=== PATIENT | female | born 2000 | race Caucasian/White ===

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

== ENCOUNTER 2022-04-02 01:59 | Emergency (ER) | payer BC, OTHER ==
[~2022-04-02] VITALS: Ht 154.9 cm; Wt 90.7 kg
[2022-04-02] MEDS ORDERED: ONDANSETRON 4 MG (ZOFRAN) ORAL DISSOLVE TAB PO STA (02:14)
--- NOTE | 2022-04-02 02:44 | ED General ---
General Chief Complaint: Dizziness/Syncope Stated Complaint: IN-OUT OF CONSCIOUSNESS,COMPLAINED OF CHEST TIGHTN Source of Information: Patient Exam Limitations: No Limitations History of Present Illness Date Seen by Provider: Apr 02, 2022 Time Seen by Provider: 02:05 Initial Comments Patient is a 21yo female who presents to the ER with a compliant of feeling dizzy. SHe states that she was at work at a local [employer]. She was heading to clean the bathrooms and had sudden onset of feeling dizzy, nauseated. She denies headache, vision change, unilateral numbness, weakness or tingling. She states her chest felt "tight" for about 20min. Gone now. She denies shortness of breath. No abdominal pain. Currently on her menstrual period. No diarrhea. States she was "sick" a week ago on with similar symptoms. She has had vertigo in high school but this feels different she states. When she moves around the "dizziness" is more pronounced. History of asthma. Allergies and Home Medications Allergies Uncoded Allergies: strawberries (Allergy, Mild, 04/02/22) Review of Systems Review of Systems Constitutional: see HPI, malaise EENTM: no symptoms reported Respiratory: no symptoms reported Cardiovascular: chest pain Gastrointestinal: nausea Genitourinary: no symptoms reported Musculoskeletal: no symptoms reported Skin: no symptoms reported Psychiatric/Neurological: Other (dizziness) All Other Systems Reviewed Negative Unless Noted: Yes Physical Exam Vital Signs Vital Signs - First Documented 04/02/22 02:05 Temp 36.9 Pulse 84 Resp 16 B/P (MAP) 141/86 (104) Pulse Ox 99 O2 Delivery Room Air Capillary Refill : Height, Weight, BMI Height: '" Weight: lbs. oz. kg; BMI Method: General Appearance: No Apparent Distress, WD/WN Eyes: Bilateral Eye Normal Inspection, Bilateral Eye PERRL, Bilateral Eye EOMI HEENT: PERRL/EOMI, Pharynx Normal, Moist Mucous Membranes Neck: Full Range of Motion, Normal Inspection Respiratory: Lungs Clear, Normal Breath Sounds, No Accessory Muscle Use, No Respiratory Distress Cardiovascular: Regular Rate, Rhythm, Normal Peripheral Pulses Gastrointestinal: Non Tender, Soft Extremity: Normal Capillary Refill, Normal Inspection, Normal Range of Motion Neurologic/Psychiatric: Alert, Oriented x3, No Motor/Sensory Deficits, Normal Mood/Affect, head baker II-XII Norm as Tested Skin: Normal Color, Warm/Dry Progress/Results/Core Measures Suspected Sepsis SIRS Temperature: Pulse: Respiratory Rate: Blood Pressure / Mean: Results/Orders Lab Results Laboratory Tests Test 04/02/22 02:18 04/02/22 02:24 Range/Units Glucometer 151 H 70-110 MG/DL Urine Opiates Screen NEGATIVE NEGATIVE Urine Oxycodone Screen NEGATIVE NEGATIVE Urine Methadone Screen NEGATIVE NEGATIVE Urine Propoxyphene Screen NEGATIVE NEGATIVE Urine Barbiturates Screen NEGATIVE NEGATIVE Ur Tricyclic Antidepressants Screen NEGATIVE NEGATIVE Urine Phencyclidine Screen NEGATIVE NEGATIVE Urine Amphetamines Screen NEGATIVE NEGATIVE Urine Methamphetamines Screen NEGATIVE NEGATIVE Urine Benzodiazepines Screen NEGATIVE NEGATIVE Urine Cocaine Screen NEGATIVE NEGATIVE Urine Cannabinoids Screen NEGATIVE NEGATIVE My Orders Orders - CAMILLA JACKSON MD Drug Screen Stat (Urine) (04/02/22 02:14) Urine Bedside (04/02/22 02:14) Accucheck Stat ONCE (04/02/22 02:14) Ondansetron Oral Dissolve Tab (Zofran (04/02/22 02:14) Vital Signs/I&O 04/02/22 02:05 Temp 36.9 Pulse 84 Resp 16 B/P (MAP) 141/86 (104) Pulse Ox 99 O2 Delivery Room Air Capillary Refill : Progress Note : Time: 02:58 Progress Note Patient seen and evaluated, 21-year-old with dizziness and nausea. Evaluation today includes a physical exam, urine drug screen (-), urine test (-) and accu check (151). Review of history, past medical surgical and allergies. Differential diagnosis based on history - fatigue, vertigo, viral syndrome, middle ear infection/URI. Based on exam and labs and in conjunction with history patient likely has simple fatigue. She did not sleep well yesterday, she did use a 5-hour energy drink this morning because she was tired. No fevers or chills, productive cough or anything else to suggest infectious process. No headache, focal neurologic deficits to suggest any type of neurologic compromise. She was treated with 4 mg of Zofran in the department, symptoms have improved. She feels back to baseline. Notably her BP is slightly high (140-160) and her blood sugar was elevated. I did mortgage counselor her on follup for these. Recommended home with a good day sleep. Monitor herself for worsening symptoms and return to the emergency room for any new complaints. Patient verbalized understanding. All questions are sought and answered. Patient is stable for discharge. Departure Impression Primary Impression: Dizziness Additional Impression: Fatigue Qualified Codes: R53.83 - Other fatigue Disposition: 01 HOME, SELF-CARE Condition: Improved Departure-Patient Inst. Decision time for Depature: 03:02 Referrals: [facility]/VANDANA HOOD MD (PCP/Family) Primary Care Physician Patient Instructions: Dizziness, Adult ED Add. Discharge Instructions: Drink plenty of fluids to stay well-hydrated. Please call [facility] or other primary care provider of your choice to follow-up with your blood pressure which was fairly elevated this morning as well as with your blood sugar. Try and avoid 5-hour energy drinks. These can cause you to feel dizzy and unwell. Return to the emergency department for any new, concerning or emergent complaints. CAMILLA JACKSON MD Apr 02, 2022 02:44
[2022-04-02 02:45] LABS: AMPHETAMINE SCREEN, URINE NEGATIVE (NEGATIVE); BARBITURATE SCREEN URINE NEGATIVE (NEGATIVE); BENZODIAZEPINES SCREEN URINE NEGATIVE (NEGATIVE); CANNABINOID SCREEN, URINE NEGATIVE (NEGATIVE); COCAINE SCREEN URINE NEGATIVE (NEGATIVE); METHADONE STAT NEGATIVE (NEGATIVE); OPIATE SCREEN URINE NEGATIVE (NEGATIVE); OXYCODONE STAT NEGATIVE (NEGATIVE); PROPOXYPHENE STAT NEGATIVE (NEGATIVE); TRICYCLIC ANTIDEPRESSANTS SCRE NEGATIVE (NEGATIVE)
[2022-04-02 03:10] VITALS: BP 137/71
== END 2022-04-02 03:10 | disposition home or self-care (01) ==
LOC: EDUNIT# 01:59 → ER 02:02
DX: R42 Dizziness and giddiness (principal); R53.83 Other fatigue; R11.0 Nausea
CPT/HCPCS: 80306; 82947; 84703